=== PATIENT | female | born 1990 | race Caucasian/White ===

== ENCOUNTER 2017-07-06 16:36 | Observation (INO) | payer MEDICAID, OTHER ==
[~2017-07-06] VITALS: Ht 165.1 cm; Wt 82.0 kg
[2017-07-06 17:35] LABS: MICROSCOPIC INDICATED
[2017-07-06 17:43] LABS: AMPHETAMINE SCREEN, URINE Negative (Negative); BARBITURATE SCREEN, URINE Negative (Negative); BENZODIAZEPINE SCREEN, URINE Negative (Negative); CANNABINOID SCREEN, URINE Positive (Negative); COCAINE SCREEN, URINE Positive (Negative); METHADONE SCREEN, URINE Negative (Negative); OPIATE SCREEN, URINE Negative (Negative)
[2017-07-06 17:46] LABS: CULTURE INDICATED? YES
[2017-07-06] MEDS ORDERED: LORazepam 1MG TABLET ONE ×2 (17:57→23:23)
[2017-07-06] MEDS ORDERED: LORazepam 1MG TABLET PO ONE ×2 (18:00→23:30)
[2017-07-06 19:18] LABS: BASOPHILS # (AUTO) 0.04 x10^3/uL (0-0.1); BASOPHILS % (AUTO) 0 % (0-1); EOSINOPHILS % (AUTO) 1 % (1-7); LYMPHOCYTES % (AUTO) 32 % (22-44); MD NO; MEAN CORPUSCULAR HEMOGLOBIN 32.8 pg (27.0-34.8); MEAN CORPUSCULAR VOLUME 96.5 fL (80-100); MEAN PLATELET VOLUME 7.3 fL (7.4-10.4); MONOCYTES # (AUTO) 0.54 x10^3/uL (0.2-0.8); MONOCYTES % (AUTO) 6 % (2-9); NEUTROPHILS # (AUTO) 5.99 x10^3/uL (1.8-6.8); NEUTROPHILS % (AUTO) 61 % (42-75); PLATELET COUNT 370 x10^3/uL (130-400); RED BLOOD COUNT 4.27 x10^6/uL (3.82-5.3); RED CELL DISTRIBUTION WIDTH 13.6 % (9.6-15.2)
[2017-07-06 19:38] LABS: ALANINE AMINOTRANSFERASE 85 U/L (12-78); ALBUMIN 3.4 g/dL (3.4-5.0); ANION GAP 10 mmol/L (5-15); CALCIUM 8.6 mg/dL (8.5-10.1); CHLORIDE 103 mmol/L (98-107); CREATININE 0.77 mg/dL (0.55-1.02); SALICYLATE LEVEL 2.2 mg/dL (2.8-20.0)
[2017-07-06 19:41] LABS: ACETAMINOPHEN < 2 mcg/mL (10-30)
[2017-07-06 19:42] LABS: ALKALINE PHOSPHATASE 90 U/L (45-117); BILIRUBIN,TOTAL 0.6 mg/dL (0.2-1.0); TOTAL PROTEIN 6.8 g/dL (6.4-8.2)
[2017-07-06] MEDS ORDERED: POTASSIUM CHLORIDE 20 MEQ TAB.ER.PRT ONE (21:25)
[2017-07-06] MEDS ORDERED: POTASSIUM CHLORIDE 20 MEQ TAB.ER.PRT PO ONE (21:30)
[2017-07-06] MEDS ORDERED: OLANZAPINE 5 MG TABLET ONE (23:23)
[2017-07-06] MEDS: OLANZAPINE 5 MG TABLET PO SCH (23:27)
[2017-07-07] MEDS ORDERED: CLON0.5T PO (00:57)
[2017-07-07] MEDS ORDERED: OLAN20TA3 PO (00:57)
[2017-07-07] MEDS ORDERED: PSYL0.5215 PO (00:57)
[2017-07-07] MEDS ORDERED: MELA3TAB2 PO (00:57)
[2017-07-07] MEDS ORDERED: ATOR20TA9 PO (00:57)
[2017-07-07] MEDS ORDERED: OLANZAPINE 10 MG INJ IM PRN (03:00)
[2017-07-07] MEDS ORDERED: ONDANSETRON ODT 4 MG PO PRN (03:00)
[2017-07-07] MEDS ORDERED: DOCUSATE 100 MG CAPSULE PO PRN (03:00)
[2017-07-07] MEDS ORDERED: OLANZAPINE 10 MG TABLET PO PRN (03:00)
[2017-07-07 03:59] VITALS: BP 120/65
[2017-07-07] MEDS ORDERED: OLANZAPINE 5 MG TABLET ONE (13:19)
[2017-07-07] MEDS: OLANZAPINE 5 MG TABLET PO SCH (13:24)
[2017-07-07] MEDS ORDERED: NICOTINE 14MG/24 HR PATCH.TD24 ONE (14:44)
[2017-07-07] MEDS ORDERED: NICOTINE GUM 2 MG BC PRN (15:00)
[2017-07-07] MEDS ORDERED: NICOTINE 14MG/24 HR PATCH.TD24 TD SCH (15:00)
== END 2017-07-07 15:34 | disposition home or self-care (01) ==
LOC: ED 23:27 → EDIP 23:32
PROVIDERS: ADMIT Internal Medicine; ATTEND Internal Medicine
DX: F20.9 Schizophrenia, unspecified (principal); F31.9 Bipolar disorder, unspecified; E87.6 Hypokalemia; F12.10 Cannabis abuse, uncomplicated; F14.159 Cocaine abuse with cocaine-induced psychotic disorder, unspecified; F17.200 Nicotine dependence, unspecified, uncomplicated
CPT/HCPCS: 36415; 80053; 80178; 80307; 80329; 81001; 84443; 84703; 85025; 87086; 96372; 99285; G0378; G0480